=== PATIENT | male | born 1955 | race Caucasian/White ===

== ENCOUNTER 2016-10-26 15:01 | Inpatient (IN) ==
[2016-10-26 16:57] LABS: Basophils # 0.1 K/mcL (0.0-0.2); Basophils % 0.7 %; Eosinophils # 0.2 K/mcL (0.0-0.6); Hematocrit 48.8 % (37.5-50.1); Hemoglobin 16.8 g/dL (12.9-16.9); Immature Granulocytes % 0.5 % (0-4); Lymphocytes # 1.6 K/mcL (0.6-4.6); Lymphocytes % 16.3 %; Mean Corpuscular HGB Conc 34.4 g/dL (31.6-35.5); Mean Corpuscular Hemoglobin 29.3 pg (28.0-33.3); Mean Platelet Volume 10.2 fL (9.4-12.4); Monocytes # 0.5 K/mcL (0.0-1.3); Monocytes % 5.5 %; Neutrophils # 7.3 K/mcL (1.6-8.9); Platelet Count 243 K/mcL (140-400); Red Blood Count 5.74 M/mcL (4.19-5.50); Red Cell Distribution Width 12.7 % (11.5-14.5)
[2016-10-26 17:09] LABS: BUN/Creatinine Ratio 15 (6-26); Blood Urea Nitrogen 19 mg/dL (8-26); Calcium 9.7 mg/dL (8.6-10.8); Carbon Dioxide 22 mEq/L (19-29); Chloride 106 mEq/L (98-109); Glucose 94 mg/dL (70-99); Osmolality,Calculated 294 (280-300); Potassium 3.4 mEq/L (3.5-4.5); Sodium 141 mEq/L (136-145); eGFR For African Americans > 60 (> 60); eGFR For Non-African Americans 56 (> 60)
[2016-10-27 06:11] LABS: Basophils # 0.1 K/mcL (0.0-0.2); Basophils % 0.8 %; Eosinophils # 0.5 K/mcL (0.0-0.6); Eosinophils % 4.6 %; Hematocrit 43.1 % (37.5-50.1); Immature Granulocytes % 0.3 % (0-4); Lymphocytes # 3.6 K/mcL (0.6-4.6); Lymphocytes % 31.3 %; Mean Corpuscular HGB Conc 34.3 g/dL (31.6-35.5); Mean Corpuscular Hemoglobin 29.1 pg (28.0-33.3); Mean Corpuscular Volume 84.7 fL (83.0-100.0); Mean Platelet Volume 10.4 fL (9.4-12.4); Monocytes # 0.9 K/mcL (0.0-1.3); Monocytes % 7.5 %; Neutrophils # 6.4 K/mcL (1.6-8.9); Platelet Count 236 K/mcL (140-400); Red Blood Count 5.09 M/mcL (4.19-5.50); Red Cell Distribution Width 12.8 % (11.5-14.5); Segmented Neutrophils % 55.5 %
[2016-10-27 06:15] LABS: Hemoglobin 14.8 g/dL (12.9-16.9)
[2016-10-27 06:32] LABS: BUN/Creatinine Ratio 15 (6-26); Blood Urea Nitrogen 20 mg/dL (8-26); Calcium 9.1 mg/dL (8.6-10.8); Carbon Dioxide 21 mEq/L (19-29); Chloride 108 mEq/L (98-109); Chol/HDL Ratio 8.7 (0-4.9); Cholesterol 253 mg/dL (< 200); Glucose 90 mg/dL (70-99); HDL Cholesterol 29 mg/dL (40-59); LDL Cholesterol,Calculated 186 mg/dL (0-99); Osmolality,Calculated 294 (280-300); Phosphorous 3.7 mg/dL (2.3-4.7); Potassium 3.5 mEq/L (3.5-4.5); Sodium 141 mEq/L (136-145); Triglycerides 191 mg/dL (< 150); eGFR For African Americans > 60 (> 60); eGFR For Non-African Americans 54 (> 60)
[2016-10-27 06:43] LABS: Creatine Kinase 55 Units/L (30-200)
[2016-10-27 19:21] LABS: Protein/Creatinine Ratio,Urine 0.31 mg/mg (0-0.20)
[2016-10-28 06:07] LABS: Basophils # 0.1 K/mcL (0.0-0.2); Basophils % 0.6 %; Eosinophils # 0.5 K/mcL (0.0-0.6); Eosinophils % 4.6 %; Hematocrit 41.9 % (37.5-50.1); Hemoglobin 14.1 g/dL (12.9-16.9); Immature Granulocytes % 0.5 % (0-4); Lymphocytes # 3.4 K/mcL (0.6-4.6); Lymphocytes % 30.9 %; Mean Corpuscular HGB Conc 33.7 g/dL (31.6-35.5); Mean Corpuscular Hemoglobin 29.1 pg (28.0-33.3); Mean Corpuscular Volume 86.6 fL (83.0-100.0); Mean Platelet Volume 10.8 fL (9.4-12.4); Monocytes # 0.8 K/mcL (0.0-1.3); Monocytes % 6.9 %; Neutrophils # 6.3 K/mcL (1.6-8.9); Nucleated Red Blood Cells 0.5 /100 WBC (0); Platelet Count 238 K/mcL (140-400); Red Blood Count 4.84 M/mcL (4.19-5.50); Red Cell Distribution Width 12.9 % (11.5-14.5); Segmented Neutrophils % 56.5 %
[2016-10-28 06:11] LABS: Calcium 8.8 mg/dL (8.6-10.8); Potassium 3.8 mEq/L (3.5-4.5)
[2016-10-28 06:40] LABS: Magnesium 2.4 mg/dL (1.6-2.6)
[2016-10-29 04:58] LABS: Basophils # 0.1 K/mcL (0.0-0.2); Basophils % 0.7 %; Eosinophils # 0.3 K/mcL (0.0-0.6); Eosinophils % 2.2 %; Hematocrit 44.7 % (37.5-50.1); Hemoglobin 15.1 g/dL (12.9-16.9); Immature Granulocytes % 0.4 % (0-4); Lymphocytes % 16.6 %; Mean Corpuscular HGB Conc 33.8 g/dL (31.6-35.5); Mean Corpuscular Hemoglobin 30.1 pg (28.0-33.3); Mean Platelet Volume 10.4 fL (9.4-12.4); Monocytes # 0.7 K/mcL (0.0-1.3); Monocytes % 5.8 %; Neutrophils # 9.1 K/mcL (1.6-8.9); Platelet Count 236 K/mcL (140-400); Red Blood Count 5.02 M/mcL (4.19-5.50); Red Cell Distribution Width 12.9 % (11.5-14.5); Segmented Neutrophils % 74.3 %
[2016-10-29 06:18] LABS: Calcium 9.1 mg/dL (8.6-10.8); Potassium 4.1 mEq/L (3.5-4.5)
[2016-10-29 23:38] LABS: Bilirubin,Urine Negative (Negative); Blood,Urine Trace (Negative); Clarity,Urine Clear (Clear); Color,Urine Yellow (Yellow); Glucose,Urine (UA) Normal (Normal); Ketones,Urine Negative (Negative); Leukocyte Esterase,Urine Negative (Negative); Nitrite,Urine Negative (Negative); PH,Urine 6.5 pH Units (5.0-8.0); Protein,Urine Negative (Neg-Trace); Specific Gravity,Urine 1.005 (1.010-1.025); Urobilinogen,Urine Normal (Normal)
[2016-10-29 23:40] LABS: Bacteria,Urine None Seen per hpf (None-Few); Hyaline Casts,Urine None Seen per lpf (None-Few); RBC,Urine 0-3 per hpf (0-3); Squamous Epithelial Cell,Urine Moderate per lpf (None-Few); WBC,Urine 0-3 per hpf (0-3)
[2016-10-30 05:26] LABS: Basophils # 0.1 K/mcL (0.0-0.2); Basophils % 0.6 %; Eosinophils # 0.5 K/mcL (0.0-0.6); Eosinophils % 4.5 %; Hematocrit 40.3 % (37.5-50.1); Hemoglobin 14.2 g/dL (12.9-16.9); Immature Granulocytes % 0.3 % (0-4); Lymphocytes # 3.4 K/mcL (0.6-4.6); Lymphocytes % 28.2 %; Mean Corpuscular HGB Conc 35.2 g/dL (31.6-35.5); Mean Corpuscular Hemoglobin 30.1 pg (28.0-33.3); Mean Corpuscular Volume 85.4 fL (83.0-100.0); Mean Platelet Volume 10.2 fL (9.4-12.4); Monocytes # 0.8 K/mcL (0.0-1.3); Monocytes % 6.9 %; Neutrophils # 7.1 K/mcL (1.6-8.9); Platelet Count 225 K/mcL (140-400); Red Blood Count 4.72 M/mcL (4.19-5.50); Red Cell Distribution Width 12.9 % (11.5-14.5); Segmented Neutrophils % 59.5 %
[2016-10-30 05:44] LABS: BUN/Creatinine Ratio 17 (6-26); Blood Urea Nitrogen 23 mg/dL (8-26); Calcium 8.6 mg/dL (8.6-10.8); Carbon Dioxide 19 mEq/L (19-29); Chloride 113 mEq/L (98-109); Glucose 93 mg/dL (70-99); Osmolality,Calculated 295 (280-300); Potassium 3.8 mEq/L (3.5-4.5); Sodium 141 mEq/L (136-145); eGFR For African Americans > 60 (> 60); eGFR For Non-African Americans 54 (> 60)
[2016-10-30 05:46] LABS: Uric Acid 7.5 mg/dL (3.5-7.2)
[2016-10-31 03:12] LABS: Basophils # 0.1 K/mcL (0.0-0.2); Basophils % 0.5 %; Eosinophils # 0.3 K/mcL (0.0-0.6); Eosinophils % 2.3 %; Hematocrit 41.2 % (37.5-50.1); Hemoglobin 14.1 g/dL (12.9-16.9); Immature Granulocytes % 0.4 % (0-4); Lymphocytes # 2.1 K/mcL (0.6-4.6); Lymphocytes % 16.2 %; Mean Corpuscular HGB Conc 34.2 g/dL (31.6-35.5); Mean Corpuscular Hemoglobin 29.2 pg (28.0-33.3); Mean Corpuscular Volume 85.3 fL (83.0-100.0); Mean Platelet Volume 10.3 fL (9.4-12.4); Monocytes # 0.7 K/mcL (0.0-1.3); Monocytes % 5.8 %; Neutrophils # 9.6 K/mcL (1.6-8.9); Platelet Count 246 K/mcL (140-400); Red Blood Count 4.83 M/mcL (4.19-5.50); Red Cell Distribution Width 12.7 % (11.5-14.5); Segmented Neutrophils % 74.8 %
[2016-10-31 03:19] LABS: BUN/Creatinine Ratio 16 (6-26); Blood Urea Nitrogen 20 mg/dL (8-26); Calcium 8.7 mg/dL (8.6-10.8); Carbon Dioxide 17 mEq/L (19-29); Chloride 111 mEq/L (98-109); Glucose 97 mg/dL (70-99); Magnesium 1.8 mg/dL (1.6-2.6); Osmolality,Calculated 289 (280-300); Phosphorous 2.5 mg/dL (2.3-4.7); Potassium 3.7 mEq/L (3.5-4.5); Sodium 138 mEq/L (136-145); eGFR For African Americans > 60 (> 60); eGFR For Non-African Americans 60 (> 60)
[2016-10-31 03:40] LABS: Ionized Calcium 1.11 mmol/L (1.15-1.35)
[2016-10-31 08:25] LABS: Hemoglobin A1C 5.3 %
[2016-11-01 02:30] LABS: Alpha 2 Globulin (PEP) 0.79 g/dL (0.48-1.05); Beta Globulin (PEP) 0.73 g/dL (0.48-1.10)
[2016-11-01 12:20] LABS: Basophils # 0.1 K/mcL (0.0-0.2); Basophils % 0.4 %; Eosinophils # 0.3 K/mcL (0.0-0.6); Hematocrit 29.5 % (37.5-50.1); Hemoglobin 10.4 g/dL (12.9-16.9); Immature Granulocytes % 0.9 % (0-4); Lymphocytes # 1.9 K/mcL (0.6-4.6); Lymphocytes % 13.4 %; Mean Corpuscular HGB Conc 35.3 g/dL (31.6-35.5); Mean Corpuscular Hemoglobin 30.1 pg (28.0-33.3); Mean Corpuscular Volume 85.3 fL (83.0-100.0); Mean Platelet Volume 10.6 fL (9.4-12.4); Monocytes # 0.4 K/mcL (0.0-1.3); Monocytes % 2.7 %; Platelet Count 129 K/mcL (140-400); Red Blood Count 3.46 M/mcL (4.19-5.50); Red Cell Distribution Width 12.6 % (11.5-14.5); Segmented Neutrophils % 80.6 %
[2016-11-01 12:22] LABS: Activated Partial Thrombo Time 39.5 Seconds (26.0-36.0); INR 1.6
[2016-11-01 12:23] LABS: BUN/Creatinine Ratio 10 (6-26); Blood Urea Nitrogen 14 mg/dL (8-26); Calcium 8.4 mg/dL (8.6-10.8); Carbon Dioxide 23 mEq/L (19-29); Chloride 109 mEq/L (98-109); Glucose 42 mg/dL (70-99); Osmolality,Calculated 291 (280-300); Potassium 3.2 mEq/L (3.5-4.5); Prothrombin Time 17.2 Seconds (9.4-12.1); eGFR For African Americans > 60 (> 60); eGFR For Non-African Americans 54 (> 60)
[2016-11-01 12:24] LABS: ABG Base Excess 0.7 mEq/L (-2.0 to 3.0); ABG HCO3 25.4 mEQ/L (21-27); ABG Oxygen Saturation 94 % (95-98); ABG PCO2 40 mmHg (35-45); ABG PH 7.41 pH Units (7.32-7.45); ABG PO2 69 mmHg (85-104); ABG TCO2 26.6 mEq/L (20-26); Neutrophils # 11.1 K/mcL (1.6-8.9)
[2016-11-01 12:26] LABS: Blood Gas FiO2 100 %
[2016-11-01 12:28] LABS: Myeloperoxidase Ab 1 AU/mL (0-19); Serine Protease-3 Antibody 0 AU/mL (0-19)
[2016-11-01 12:29] LABS: Magnesium 2.9 mg/dL (1.6-2.6)
[2016-11-01 12:30] LABS: Sodium 142 mEq/L (136-145)
[2016-11-01 12:34] LABS: ANA IgG by ELISA NONE DETECTED (None Detected); IFE Reflexed NOT DONE
[2016-11-01 15:02] LABS: ABG Base Excess -0.2 mEq/L (-2.0 to 3.0); ABG HCO3 25.4 mEQ/L (21-27); ABG Hematocrit 43 % (35-51); ABG Oxygen Saturation 98 % (95-98); ABG PCO2 44 mmHg (35-45); ABG PH 7.37 pH Units (7.32-7.45); ABG PO2 100 mmHg (85-104); ABG TCO2 26.8 mEq/L (20-26)
[2016-11-01 15:03] LABS: ABG Glucose 94 mg/dL (60-95); ABG Ionized Calcium 1.21 mmol/L (1.15-1.35)
[2016-11-01 15:04] LABS: ABG PH 7.38 pH Units (7.32-7.45)
[2016-11-01 15:05] LABS: ABG Base Excess -4.5 mEq/L (-2.0 to 3.0); ABG Glucose 89 mg/dL (60-95); ABG HCO3 20.1 mEQ/L (21-27); ABG Hematocrit 29 % (35-51); ABG Ionized Calcium 0.84 mmol/L (1.15-1.35); ABG Oxygen Saturation 98 % (95-98); ABG PCO2 34 mmHg (35-45); ABG PO2 107 mmHg (85-104); ABG TCO2 21.1 mEq/L (20-26)
[2016-11-01 15:07] LABS: ABG Base Excess -0.3 mEq/L (-2.0 to 3.0); ABG Glucose 171 mg/dL (60-95); ABG HCO3 23.6 mEQ/L (21-27); ABG Hematocrit 22 % (35-51); ABG Ionized Calcium 0.89 mmol/L (1.15-1.35); ABG Oxygen Saturation 100 % (95-98); ABG PCO2 34 mmHg (35-45); ABG PH 7.45 pH Units (7.32-7.45); ABG PO2 439 mmHg (85-104); ABG TCO2 24.6 mEq/L (20-26)
[2016-11-01 15:09] LABS: ABG Base Excess 4.6 mEq/L (-2.0 to 3.0); ABG HCO3 27.9 mEQ/L (21-27); ABG Hematocrit 23 % (35-51); ABG Oxygen Saturation 100 % (95-98); ABG PCO2 35 mmHg (35-45); ABG PH 7.51 pH Units (7.32-7.45); ABG PO2 533 mmHg (85-104)
[2016-11-01 15:10] LABS: ABG Glucose 169 mg/dL (60-95); ABG Ionized Calcium 0.89 mmol/L (1.15-1.35)
[2016-11-01 15:11] LABS: ABG PCO2 36 mmHg (35-45); ABG PH 7.47 pH Units (7.32-7.45); ABG PO2 488 mmHg (85-104)
[2016-11-01 15:12] LABS: ABG Base Excess 2.4 mEq/L (-2.0 to 3.0); ABG Glucose 104 mg/dL (60-95); ABG HCO3 26.2 mEQ/L (21-27); ABG Hematocrit 23 % (35-51); ABG Ionized Calcium 0.95 mmol/L (1.15-1.35); ABG Oxygen Saturation 100 % (95-98); ABG TCO2 27.3 mEq/L (20-26)
[2016-11-01 16:29] LABS: ABG Base Excess -0.7 mEq/L (-2.0 to 3.0); ABG HCO3 24.2 mEQ/L (21-27); ABG Oxygen Saturation 91 % (95-98); ABG PCO2 40 mmHg (35-45); ABG PO2 61 mmHg (85-104); ABG TCO2 25.4 mEq/L (20-26)
[2016-11-01 16:32] LABS: ABG PH 7.39 pH Units (7.32-7.45); Blood Gas FiO2 30 %
[2016-11-01 19:03] LABS: ABG Base Excess -1.4 mEq/L (-2.0 to 3.0); ABG HCO3 22.7 mEQ/L (21-27); ABG Oxygen Saturation 92 % (95-98); ABG PCO2 35 mmHg (35-45); ABG PO2 62 mmHg (85-104); ABG TCO2 23.8 mEq/L (20-26)
[2016-11-01 19:04] LABS: ABG PH 7.42 pH Units (7.32-7.45)
[2016-11-01 20:58] LABS: ABG Base Excess -0.9 mEq/L (-2.0 to 3.0); ABG HCO3 24.8 mEQ/L (21-27); ABG Oxygen Saturation 80 % (95-98); ABG PCO2 45 mmHg (35-45); ABG PH 7.35 pH Units (7.32-7.45); ABG TCO2 26.2 mEq/L (20-26)
[2016-11-01 20:59] LABS: ABG PO2 47 mmHg (85-104); Blood Gas FiO2 50 %
[2016-11-02 04:09] LABS: ABG HCO3 23.1 mEQ/L (21-27); ABG Oxygen Saturation 90 % (95-98); ABG PCO2 40 mmHg (35-45); ABG PH 7.37 pH Units (7.32-7.45); ABG PO2 61 mmHg (85-104); ABG TCO2 24.3 mEq/L (20-26)
[2016-11-02 04:10] LABS: Basophils % 0.2 %; Blood Gas FiO2 50 %; Eosinophils % 0.1 %; Hematocrit 30.1 % (37.5-50.1); Immature Granulocytes % 0.8 % (0-4); Lymphocytes # 1.2 K/mcL (0.6-4.6); Lymphocytes % 6.3 %; Mean Corpuscular HGB Conc 34.6 g/dL (31.6-35.5); Mean Corpuscular Hemoglobin 29.9 pg (28.0-33.3); Mean Corpuscular Volume 86.5 fL (83.0-100.0); Mean Platelet Volume 10.4 fL (9.4-12.4); Monocytes # 1.5 K/mcL (0.0-1.3); Monocytes % 8.1 %; Neutrophils # 15.5 K/mcL (1.6-8.9); Platelet Count 182 K/mcL (140-400); Red Blood Count 3.48 M/mcL (4.19-5.50); Segmented Neutrophils % 84.5 %
[2016-11-02 04:14] LABS: Hemoglobin 10.4 g/dL (12.9-16.9)
[2016-11-02 04:18] LABS: INR 1.3
[2016-11-02 04:20] LABS: Activated Partial Thrombo Time 31.1 Seconds (26.0-36.0)
[2016-11-02 04:22] LABS: Calcium 7.7 mg/dL (8.6-10.8); Magnesium 1.8 mg/dL (1.6-2.6); Potassium 4.2 mEq/L (3.5-4.5); Prothrombin Time 14.5 Seconds (9.4-12.1)
[2016-11-02 11:16] LABS: Creatinine,Urine 17 mg/dL; Protein/Creatinine Ratio,Urine 0.41 mg/mg (0-0.20)
[2016-11-03 03:38] LABS: Basophils % 0.1 %; Hematocrit 28.8 % (37.5-50.1); Immature Granulocytes % 0.7 % (0-4); Lymphocytes # 1.1 K/mcL (0.6-4.6); Lymphocytes % 7.5 %; Mean Corpuscular HGB Conc 34.7 g/dL (31.6-35.5); Mean Corpuscular Hemoglobin 29.9 pg (28.0-33.3); Monocytes # 0.5 K/mcL (0.0-1.3); Neutrophils # 13.6 K/mcL (1.6-8.9); Platelet Count 151 K/mcL (140-400); Red Blood Count 3.35 M/mcL (4.19-5.50); Red Cell Distribution Width 13.2 % (11.5-14.5); Segmented Neutrophils % 88.7 %
[2016-11-03 03:50] LABS: Albumin 2.9 g/dL (3.5-5.0); Bilirubin,Total 0.6 mg/dL (0.2-1.2); Calcium 8.3 mg/dL (8.6-10.8); Globulin 2.9 g/dL (2.4-3.5); Potassium 3.6 mEq/L (3.5-4.5); Total Protein 5.8 g/dL (6.0-8.3)
[2016-11-03 05:06] LABS: ABG Base Excess -2.5 mEq/L (-2.0 to 3.0); ABG HCO3 21.2 mEQ/L (21-27); ABG Oxygen Saturation 91 % (95-98); ABG PCO2 32 mmHg (35-45); ABG PH 7.43 pH Units (7.32-7.45); ABG PO2 59 mmHg (85-104); ABG TCO2 22.2 mEq/L (20-26)
[2016-11-03 05:07] LABS: Blood Gas FiO2 60 %
[2016-11-03 09:40] LABS: Magnesium 1.8 mg/dL (1.6-2.6); Phosphorous 3.8 mg/dL (2.3-4.7)
[2016-11-03 17:41] LABS: ABG Base Excess -2.3 mEq/L (-2.0 to 3.0); ABG HCO3 22.4 mEQ/L (21-27); ABG Oxygen Saturation 77 % (95-98); ABG PCO2 37 mmHg (35-45); ABG PH 7.39 pH Units (7.32-7.45); ABG TCO2 23.5 mEq/L (20-26)
[2016-11-03 17:42] LABS: ABG PO2 42 mmHg (85-104); Blood Gas Liter Flow 15 L/MIN
[2016-11-04 04:09] LABS: Hematocrit 26.5 % (37.5-50.1); Hemoglobin 9.2 g/dL (12.9-16.9); Immature Granulocytes % 1.8 % (0-4); Immature Platelets 9.6 % (1.1-6.1); Lymphocytes # 0.8 K/mcL (0.6-4.6); Lymphocytes % 4.5 %; Mean Corpuscular HGB Conc 34.7 g/dL (31.6-35.5); Mean Corpuscular Hemoglobin 29.8 pg (28.0-33.3); Mean Corpuscular Volume 85.8 fL (83.0-100.0); Mean Platelet Volume 10.8 fL (9.4-12.4); Monocytes # 0.8 K/mcL (0.0-1.3); Monocytes % 4.7 %; Neutrophils # 14.7 K/mcL (1.6-8.9); Platelet Count 170 K/mcL (140-400); Red Blood Count 3.09 M/mcL (4.19-5.50); Red Cell Distribution Width 13.2 % (11.5-14.5)
[2016-11-04 04:21] LABS: Albumin 2.7 g/dL (3.5-5.0); Albumin/Globulin Ratio 0.9 (1.1-2.2); Bilirubin,Total 0.4 mg/dL (0.2-1.2); Calcium 8.3 mg/dL (8.6-10.8); Potassium 3.4 mEq/L (3.5-4.5); Total Protein 5.7 g/dL (6.0-8.3)
[2016-11-04 04:55] LABS: Folate 6.8 ng/mL (7.0-31.4)
[2016-11-04 05:16] LABS: % Iron Saturation 16 % (20-55); Iron 26 mcg/dL (65-175); Transferrin 117 mg/dL (174-364)
[2016-11-04 05:41] LABS: Ferritin 669 ng/ml (22-275)
[2016-11-05 03:03] LABS: Basophils % 0.1 %; Hematocrit 27.3 % (37.5-50.1); Hemoglobin 9.3 g/dL (12.9-16.9); Lymphocytes # 0.8 K/mcL (0.6-4.6); Lymphocytes % 4.5 %; Mean Corpuscular HGB Conc 34.1 g/dL (31.6-35.5); Mean Corpuscular Hemoglobin 29.6 pg (28.0-33.3); Mean Corpuscular Volume 86.9 fL (83.0-100.0); Mean Platelet Volume 11.2 fL (9.4-12.4); Monocytes # 0.8 K/mcL (0.0-1.3); Monocytes % 4.9 %; Platelet Count 199 K/mcL (140-400); Red Blood Count 3.14 M/mcL (4.19-5.50); Red Cell Distribution Width 13.5 % (11.5-14.5); Segmented Neutrophils % 89.5 %
[2016-11-05 03:21] LABS: Albumin 2.8 g/dL (3.5-5.0); Bilirubin,Total 0.6 mg/dL (0.2-1.2); Calcium 8.1 mg/dL (8.6-10.8); Globulin 2.8 g/dL (2.4-3.5); Potassium 4.3 mEq/L (3.5-4.5); Total Protein 5.6 g/dL (6.0-8.3)
[2016-11-05 05:05] LABS: ABG Base Excess 1.2 mEq/L (-2.0 to 3.0); ABG HCO3 24.6 mEQ/L (21-27); ABG Oxygen Saturation 86 % (95-98); ABG PCO2 33 mmHg (35-45); ABG PH 7.48 pH Units (7.32-7.45); ABG TCO2 25.6 mEq/L (20-26)
[2016-11-05 05:06] LABS: ABG PO2 47 mmHg (85-104)
[2016-11-06 05:05] LABS: Basophils % 0.1 %; Eosinophils % 0.1 %; Hematocrit 28.3 % (37.5-50.1); Hemoglobin 9.8 g/dL (12.9-16.9); Immature Granulocytes % 1.9 % (0-4); Lymphocytes # 2.5 K/mcL (0.6-4.6); Lymphocytes % 15.5 %; Mean Corpuscular HGB Conc 34.6 g/dL (31.6-35.5); Mean Corpuscular Hemoglobin 29.8 pg (28.0-33.3); Mean Platelet Volume 10.7 fL (9.4-12.4); Monocytes # 1.3 K/mcL (0.0-1.3); Monocytes % 8.2 %; Platelet Count 241 K/mcL (140-400); Red Blood Count 3.29 M/mcL (4.19-5.50); Red Cell Distribution Width 13.3 % (11.5-14.5); Segmented Neutrophils % 74.2 %
[2016-11-06 05:13] LABS: BUN/Creatinine Ratio 31 (6-26); Blood Urea Nitrogen 41 mg/dL (8-26); Carbon Dioxide 24 mEq/L (19-29); Chloride 104 mEq/L (98-109); Glucose 77 mg/dL (70-99); Osmolality,Calculated 289 (280-300); Sodium 135 mEq/L (136-145); eGFR For African Americans > 60 (> 60); eGFR For Non-African Americans 55 (> 60)
[2016-11-07 04:27] LABS: Basophils % 0.3 %; Eosinophils # 0.1 K/mcL (0.0-0.6); Eosinophils % 0.6 %; Hematocrit 32.1 % (37.5-50.1); Hemoglobin 10.9 g/dL (12.9-16.9); Immature Granulocytes % 2.3 % (0-4); Lymphocytes # 2.9 K/mcL (0.6-4.6); Lymphocytes % 18.5 %; Mean Corpuscular Hemoglobin 29.1 pg (28.0-33.3); Mean Corpuscular Volume 85.6 fL (83.0-100.0); Mean Platelet Volume 9.9 fL (9.4-12.4); Monocytes # 1.2 K/mcL (0.0-1.3); Monocytes % 7.6 %; Platelet Count 285 K/mcL (140-400); Red Blood Count 3.75 M/mcL (4.19-5.50); Red Cell Distribution Width 13.2 % (11.5-14.5); Segmented Neutrophils % 70.7 %
[2016-11-07 04:46] LABS: BUN/Creatinine Ratio 27 (6-26); Blood Urea Nitrogen 34 mg/dL (8-26); Calcium 8.3 mg/dL (8.6-10.8); Carbon Dioxide 25 mEq/L (19-29); Chloride 103 mEq/L (98-109); Glucose 81 mg/dL (70-99); Osmolality,Calculated 287 (280-300); Potassium 4.2 mEq/L (3.5-4.5); Sodium 135 mEq/L (136-145); eGFR For African Americans > 60 (> 60); eGFR For Non-African Americans 58 (> 60)
[2016-11-08 04:40] LABS: Basophils # 0.1 K/mcL (0.0-0.2); Basophils % 0.2 %; Eosinophils # 0.3 K/mcL (0.0-0.6); Eosinophils % 1.2 %; Hematocrit 33.4 % (37.5-50.1); Hemoglobin 11.6 g/dL (12.9-16.9); Immature Granulocytes % 2.6 % (0-4); Lymphocytes # 3.7 K/mcL (0.6-4.6); Lymphocytes % 17.4 %; Mean Corpuscular HGB Conc 34.7 g/dL (31.6-35.5); Mean Corpuscular Hemoglobin 29.8 pg (28.0-33.3); Mean Corpuscular Volume 85.9 fL (83.0-100.0); Mean Platelet Volume 10.1 fL (9.4-12.4); Monocytes # 1.3 K/mcL (0.0-1.3); Monocytes % 6.1 %; Neutrophils # 15.3 K/mcL (1.6-8.9); Platelet Count 322 K/mcL (140-400); Red Blood Count 3.89 M/mcL (4.19-5.50); Red Cell Distribution Width 13.2 % (11.5-14.5); Segmented Neutrophils % 72.5 %
[2016-11-08 04:57] LABS: Calcium 8.6 mg/dL (8.6-10.8); Potassium 3.8 mEq/L (3.5-4.5)
[2016-11-09 04:15] LABS: Hematocrit 31.5 % (37.5-50.1); Hemoglobin 10.8 g/dL (12.9-16.9); Mean Corpuscular HGB Conc 34.3 g/dL (31.6-35.5); Mean Corpuscular Hemoglobin 29.5 pg (28.0-33.3); Mean Corpuscular Volume 86.1 fL (83.0-100.0); Platelet Count 299 K/mcL (140-400); Red Blood Count 3.66 M/mcL (4.19-5.50); Red Cell Distribution Width 13.6 % (11.5-14.5)
[2016-11-09 04:27] LABS: BUN/Creatinine Ratio 25 (6-26); Blood Urea Nitrogen 36 mg/dL (8-26); Calcium 8.2 mg/dL (8.6-10.8); Carbon Dioxide 26 mEq/L (19-29); Chloride 102 mEq/L (98-109); Glucose 76 mg/dL (70-99); Osmolality,Calculated 289 (280-300); Potassium 3.8 mEq/L (3.5-4.5); Sodium 136 mEq/L (136-145); eGFR For African Americans > 60 (> 60); eGFR For Non-African Americans 51 (> 60)
[2016-11-10 04:24] LABS: Basophils % 0.2 %; Eosinophils # 0.7 K/mcL (0.0-0.6); Eosinophils % 3.9 %; Hematocrit 30.2 % (37.5-50.1); Hemoglobin 10.5 g/dL (12.9-16.9); Immature Granulocytes % 2.2 % (0-4); Lymphocytes # 2.7 K/mcL (0.6-4.6); Lymphocytes % 15.8 %; Mean Corpuscular HGB Conc 34.8 g/dL (31.6-35.5); Mean Corpuscular Hemoglobin 30.3 pg (28.0-33.3); Mean Corpuscular Volume 87.3 fL (83.0-100.0); Mean Platelet Volume 10.1 fL (9.4-12.4); Monocytes # 1.2 K/mcL (0.0-1.3); Monocytes % 7.1 %; Neutrophils # 12.2 K/mcL (1.6-8.9); Platelet Count 288 K/mcL (140-400); Red Blood Count 3.46 M/mcL (4.19-5.50); Red Cell Distribution Width 13.9 % (11.5-14.5); Segmented Neutrophils % 70.8 %
[2016-11-10 04:42] LABS: BUN/Creatinine Ratio 25 (6-26); Blood Urea Nitrogen 30 mg/dL (8-26); Calcium 7.9 mg/dL (8.6-10.8); Carbon Dioxide 25 mEq/L (19-29); Chloride 105 mEq/L (98-109); Glucose 84 mg/dL (70-99); Osmolality,Calculated 291 (280-300); Potassium 3.8 mEq/L (3.5-4.5); Sodium 138 mEq/L (136-145); eGFR For African Americans > 60 (> 60); eGFR For Non-African Americans > 60 (> 60)
[2016-11-11 07:26] VITALS: BP 140/80
== END 2016-11-11 10:24 | disposition home or self-care (01) | DRG 165 ==
LOC: EMEROO 15:01 → 2NENU 15:01 → SUATTDRO 10-27 10:35 → ICNU 10-30 11:57 → 2NNU 11-06 16:02
PROVIDERS: ADMIT Internal Medicine; ATTEND Thoracic Surgery (Cardiothoracic Vascular Surgery)

== ENCOUNTER 2019-08-08 14:56 | Observation (INO) ==
[2019-08-08] MEDS ORDERED: Aspirin 325 MG TABLET PO ONE (15:15)
[2019-08-08] MEDS: Nitroglycerin 0.4 MG TAB.SUBL SL SCH ×3 (15:27→15:39)
[2019-08-08 15:28] LABS: Basophils # 0.1 K/mcL (0.0-0.2); Basophils % 0.9 %; Eosinophils # 0.3 K/mcL (0.0-0.6); Eosinophils % 3.2 %; Immature Granulocytes % 0.4 % (0-4); Lymphocytes # 2.5 K/mcL (0.6-4.6); Lymphocytes % 26.6 %; Mean Corpuscular HGB Conc 34.9 g/dL (31.6-35.5); Mean Corpuscular Volume 80.4 fL (83.0-100.0); Mean Platelet Volume 10.2 fL (9.4-12.4); Monocytes % 10.1 %; Neutrophils # 5.6 K/mcL (1.6-8.9); Platelet Count 322 K/mcL (140-400); Red Blood Count 5.35 M/mcL (4.19-5.50); Red Cell Distribution Width 12.9 % (11.5-14.5); Segmented Neutrophils % 58.8 %; White Blood Count 9.5 K/mcL (4.3-11.1)
[2019-08-08 16:01] LABS: Alanine Aminotransferase 24 Units/L (7-52); Albumin 4.1 g/dL (3.5-5.7); Albumin/Globulin Ratio 1.5 (1.1-2.2); Alkaline Phosphatase 151 Units/L (34-104); Aspartate Amino Transferase 19 Units/L (13-39); BUN/Creatinine Ratio 12 (6-26); Bilirubin,Direct 0.1 mg/dL (0.0-0.2); Bilirubin,Indirect 0.5 mg/dL (0.0-1.0); Bilirubin,Total 0.6 mg/dL (0.3-1.0); Blood Urea Nitrogen 32 mg/dL (8-23); Calcium 9.4 mg/dL (8.6-10.3); Carbon Dioxide 24 mEq/L (23-29); Chloride 104 mEq/L (98-107); Globulin 2.7 g/dL (2.4-3.5); Glucose 103 mg/dL (70-105); Osmolality,Calculated 297 (280-300); Potassium 3.2 mEq/L (3.5-5.1); Sodium 140 mEq/L (136-145); Total Protein 6.8 g/dL (6.4-8.9); Troponin I < 0.03 ng/mL (< 0.04); eGFR For African Americans 30 (> 60); eGFR For Non-African Americans 25 (> 60)
[2019-08-08] MEDS ORDERED: 0.9 % Sodium Chloride 1,000 ML IVC ONE (16:23)
[2019-08-08] MEDS ORDERED: Naloxone 0.4 MG/ML INJ IVP PRN (16:25)
[2019-08-08] MEDS ORDERED: Nitroglycerin 25 MG/250 ML INFUS..BTL IVC SCH ×2 (16:30→17:46)
[2019-08-08] MEDS ORDERED: 0.9 % Sodium Chloride 1,000 ML IVC SCH (17:45)
[2019-08-08] MEDS: *HR* Heparin 5,000 UNIT/ML VIAL SQ SCH (18:13)
[2019-08-08] MEDS: hydrALAZINE 25 MG TABLET PO PRN (18:36)
[2019-08-08 23:09] LABS: Bilirubin,Urine Negative (Negative); Blood,Urine Negative (Negative); Clarity,Urine Clear (Clear); Color,Urine Yellow (Yellow); Glucose,Urine (UA) Normal (Normal); Ketones,Urine Negative (Negative); Leukocyte Esterase,Urine Negative (Negative); Nitrite,Urine Negative (Negative); PH,Urine 6.5 pH Units (5.0-8.0); Protein,Urine Negative (Neg-Trace); Specific Gravity,Urine 1.008 (1.010-1.025); Urobilinogen,Urine Normal (Normal)
[2019-08-09 03:28] LABS: Basophils # 0.1 K/mcL (0.0-0.2); Basophils % 0.9 %; Eosinophils # 0.4 K/mcL (0.0-0.6); Eosinophils % 4.7 %; Hemoglobin 13.9 g/dL (12.9-16.9); Immature Granulocytes % 0.2 % (0-4); Lymphocytes # 2.2 K/mcL (0.6-4.6); Lymphocytes % 23.7 %; Mean Corpuscular HGB Conc 33.9 g/dL (31.6-35.5); Mean Corpuscular Hemoglobin 27.7 pg (28.0-33.3); Mean Corpuscular Volume 81.7 fL (83.0-100.0); Mean Platelet Volume 10.5 fL (9.4-12.4); Monocytes % 11.3 %; Neutrophils # 5.5 K/mcL (1.6-8.9); Platelet Count 269 K/mcL (140-400); Red Blood Count 5.02 M/mcL (4.19-5.50); Segmented Neutrophils % 59.2 %; White Blood Count 9.2 K/mcL (4.3-11.1)
[2019-08-09 03:31] LABS: Albumin 3.7 g/dL (3.5-5.7); Albumin/Globulin Ratio 1.5 (1.1-2.2); Bilirubin,Direct 0.1 mg/dL (0.0-0.2); Bilirubin,Indirect 0.4 mg/dL (0.0-1.0); Bilirubin,Total 0.5 mg/dL (0.3-1.0); Globulin 2.5 g/dL (2.4-3.5); Total Protein 6.2 g/dL (6.4-8.9)
[2019-08-09 03:32] LABS: Calcium 8.8 mg/dL (8.6-10.3); Chol/HDL Ratio 3.5 (0-4.9); Potassium 3.4 mEq/L (3.5-5.1)
[2019-08-09] MEDS: *HR* Heparin 5,000 UNIT/ML VIAL SQ SCH ×2 (06:39→16:42)
[2019-08-09 07:40] LABS: Estimated Average Glucose 128 mg/dl
[2019-08-09] MEDS: Aspirin 81 MG TAB.CHEW PO SCH (08:06)
[2019-08-09] MEDS: amLODIPine 5 MG TABLET PO SCH (08:06)
[2019-08-09] MEDS ORDERED: Isosorbide MONOnitrate (24 HR) 60 MG TAB.ER.24H PO SCH (09:00)
[2019-08-09] MEDS ORDERED: Isosorbide MONOnitrate (24 HR) 30 MG TAB.ER.24H PO SCH (09:00)
[2019-08-09] MEDS ORDERED: 0.9 % Sodium Chloride 500 ML ONE (09:06)
[2019-08-09] MEDS: hydrALAZINE 25 MG TABLET PO PRN (20:42)
[2019-08-10 03:02] LABS: Calcium 9.4 mg/dL (8.6-10.3); Potassium 3.2 mEq/L (3.5-5.1)
[2019-08-10] MEDS: *HR* Heparin 5,000 UNIT/ML VIAL SQ SCH ×2 (06:18→17:01)
[2019-08-10] MEDS ORDERED: Potassium Chloride 20 MEQ, Lidocaine 1% 2 ML in 0.9 % Sodium Chloride 250 ML IVPB ONE (08:22)
[2019-08-10] MEDS: Aspirin 81 MG TAB.CHEW PO SCH (08:24)
[2019-08-10] MEDS: amLODIPine 5 MG TABLET PO SCH (08:24)
[2019-08-10] MEDS ORDERED: Regadenoson 0.4 MG/5 ML SYRINGE IVP ONE (10:11)
[2019-08-10] MEDS: Isosorbide MONOnitrate (24 HR) 60 MG TAB.ER.24H PO SCH (13:59)
[2019-08-10] MEDS: hydrALAZINE 10 MG TABLET PO SCH (18:27)
[2019-08-10] MEDS: Ranolazine 500 MG TAB.ER.12H PO SCH (20:21)
[2019-08-11] MEDS: hydrALAZINE 10 MG TABLET PO SCH ×2 (02:28→08:18)
[2019-08-11] MEDS: *HR* Heparin 5,000 UNIT/ML VIAL SQ SCH (05:19)
[2019-08-11 06:07] LABS: Calcium 9.1 mg/dL (8.6-10.3); Potassium 3.2 mEq/L (3.5-5.1)
[2019-08-11] MEDS: Ranolazine 500 MG TAB.ER.12H PO SCH (08:17)
[2019-08-11] MEDS: Isosorbide MONOnitrate (24 HR) 60 MG TAB.ER.24H PO SCH (08:18)
[2019-08-11] MEDS: amLODIPine 5 MG TABLET PO SCH (08:18)
[2019-08-11] MEDS: Aspirin 81 MG TAB.CHEW PO SCH (08:18)
[2019-08-11] MEDS ORDERED: cloNIDine HCl 0.1 MG TABLET PO SCH (09:00)
[2019-08-11 10:51] VITALS: BP 151/68
== END 2019-08-11 12:38 | disposition home or self-care (01) ==
LOC: EMEROOARM 14:56 → 3BNU 14:56
PROVIDERS: ADMIT Internal Medicine; ATTEND Internal Medicine